=== PATIENT | female | born 1980 | race Two or more races ===

== ENCOUNTER 2016-09-22 05:59 | Emergency (ER) | payer MEDICAID ==
[2016-09-22 06:12] VITALS: BP 110/72; PULSE 87; RESP 16; TEMP 99; O2SAT 97
[2016-09-22] MEDS ORDERED: DEXAMETHASONE 10 MG/ML VIAL IVP ONE (06:21)
[2016-09-22] MEDS ORDERED: ACETAMINOPHEN 500 MG TAB PO ONE (06:21)
--- NOTE | 2016-09-22 06:21 | EDPHY ---
H & P Stated Complaint: sore throat x3d, subj fever Time Seen by Provider: 09/22/16 06:18 HPI/ROS: HPI The patient presents with sore throat which has been present for the last 3 days which became worse this morning upon awakening. The pain is achy, bilateral, worse with swallowing, moderate in severity. She has not taken any medication for this. She has no prior history of strep throat. She denies sick contacts. Her symptoms are associated with subjective fever.. REVIEW OF SYSTEMS Constitutional: Subjective fever Eyes: No discharge. ENT: Positive for sore throat. Cardiovascular: No chest pain, no palpitations. Respiratory: No cough, no shortness of breath. Neurological: No headache. PMHx: Healthy PHYSICAL General Appearance: Alert, no distress Eyes: Pupils equal and round no pallor or injection ENT, Mouth: Mucous membranes moist, posterior pharynx is injected bilaterally without exudates Respiratory: There are no retractions, lungs are clear to auscultation Cardiovascular: Regular rate and rhythm Neurological: A&O, moves all extremities Skin: Warm and dry, no rashes Musculoskeletal: Neck is supple non tender Extremities: symmetrical, full range of motion Psychiatric: Patient is oriented X 3, there is no agitation Source: Patient Exam Limitations: No limitations - Personal History Current Tetanus/Diphtheria Vaccine: Yes Current Tetanus Diphtheria and Acellular Pertussis (TDAP): Yes - Medical/Surgical History Hx Asthma: No Hx Chronic Respiratory Disease: No Hx Diabetes: No Hx Cardiac Disease: No Hx Renal Disease: No Hx Cirrhosis: No Hx Alcoholism: No Hx HIV/AIDS: No Hx Splenectomy or Spleen Trauma: No Other PMH: TUBAL LIGATION, hypothyroid - Social History Smoking Status: Never smoked Constitutional: Initial Vital Signs Temperature (C) 37.2 C 09/22/16 06:09 Heart Rate 87 09/22/16 06:09 Respiratory Rate 16 09/22/16 06:09 Blood Pressure 110/72 09/22/16 06:09 O2 Sat (%) 97 09/22/16 06:09 O2 Delivery Mode Room Air Allergies/Adverse Reactions: No Known Allergies Allergy (Unverified 04/29/14 21:27) Home Medications: Medication Instructions Recorded LEVOTHYROXINE SODIUM [Synthroid] 0 mcg PO 10/15/10 VITAMIN D 09/22/16 Medical Decision Making ED Course/Re-evaluation: Rapid strep is negative. I feel she likely has a viral pharyngitis. She received a dose of Decadron and will be discharged with instructions for ibuprofen and Tylenol. Differential Diagnosis: This is a healthy 36-year-old female who presents with 3 days of sore throat, getting progressively worse. It on exam, she does have erythema of her posterior pharynx without exudate. She has full range of motion of her neck without any tenderness. Differential diagnosis includes strep pharyngitis, viral pharyngitis, less likely mononucleosis. - Data Points Laboratory Results: 09/22/16 09/22/16 Unknown 06:20 Group A Strep Screen NEGATIVE (NEGATIVE) Group A Strep DNA Pending Medications Given: Discontinued Medications Acetaminophen (Tylenol) 1,000 mg PO EDNOW ONE Stop: 09/22/16 06:22 Last Admin: 09/22/16 06:29 Dose: 1,000 mg Dexamethasone (Decadron Injection) 10 mg IVP EDNOW ONE Stop: 09/22/16 06:22 Last Admin: 09/22/16 06:29 Dose: 10 mg Departure - Departure Disposition: Home, Routine, Self-Care Clinical Impression: Acute pharyngitis Qualifiers: Pharyngitis/tonsillitis etiology: unspecified etiology Qualified Code(s): J02.9 - Acute pharyngitis, unspecified Condition: Good Instructions: Pharyngitis (ED) Additional Instructions: Please make sure to drink plenty of fluids. He can take ibuprofen 600 mg and Tylenol 1 g every 6 hours as needed for pain. Please return to the emergency room if your sore throats work. Referrals: Blanka Delcid MD [Primary Care Provider] - As per Instructions Stand Alone Forms: Work Excuse
== END 2016-09-22 06:50 | disposition home or self-care (01) ==
DX: J02.9 Acute pharyngitis, unspecified (principal)
CPT/HCPCS: 96374

== ENCOUNTER → 2017-02-19 | Outpatient (CLI) | payer MEDICAID | LOC: FIMAGING 12:48 | PROVIDERS: ATTEND Family Medicine | DX: N64.4 Mastodynia (principal) | CPT/HCPCS: G0204 ==